=== PATIENT | male | born 1965 | race Asian ===

== ENCOUNTER 2017-06-21 12:37 | Emergency (ER) | payer OTHER ==
[2017-06-21 13:19] VITALS: BP 128/72; PULSE 83; TEMP 98.2; BMI 24.3
[2017-06-21] MEDS ORDERED: ACETAMINOPHEN 325 MG TABLET (FP) PO ONE (14:33)
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
== END 2017-06-21 16:07 | disposition home or self-care (01) ==
LOC: JERFT 12:37 → JER 12:37 → JERFT 16:07
DX: S13.4XXA Sprain of ligaments of cervical spine, initial encounter (principal); V43.52XA Car driver injured in collision with other type car in traffic accident, initial encounter; Y92.488 Other paved roadways as the place of occurrence of the external cause; Y93.89 Activity, other specified; Y99.8 Other external cause status
CPT/HCPCS: 99281-25